=== PATIENT | female | born 1950 | race Caucasian/White ===

== ENCOUNTER 2016-04-19 13:24 | Day surgery (SDC) | payer SELFPAY ==
--- NOTE | ~2016-04-19 | EGD ---
EGD REPORT [facility] [address] [place]. [id number] NAME: HARLAN HERNANDEZ : [birth year] STATUS : REG [facility]#: [id number] AGE: 66 ADM/REG DATE : 04/19/16 MR#: [id number] REPORT SERV DATE: 04/19/16 DICTATED BY: PREMA SALOMON DATE: 04/19/16 REPORT STATUS : Draft [facility] DATE: 04/19/16 Endoscopy Center Patient Name: Harlan Hernandez Date of : 1950 Attending MD: PREMA SALOMON MD Procedure Date No Time: 04/19/2016 Procedure: Upper GI endoscopy Indications: Iron deficiency anemia, Gastro-esophageal reflux disease, Heme positive stool, Weight loss Medicines: See the Anesthesia note for documentation of the administered medications, Refused Diprivan. AA gave Versed 5mg and Fentanyl 2 cc Complications: No immediate complications. Procedure: Pre-Anesthesia Assessment: - ASA Grade Assessment: II - A patient with mild systemic disease. After obtaining informed consent, the endoscope was passed under direct vision. Throughout the procedure, the patient's blood pressure, pulse, and oxygen saturations were monitored continuously. The GIF [id number] was introduced through the mouth, and advanced to the second part of duodenum. The upper GI endoscopy was accomplished without difficulty. The patient tolerated the procedure well. Findings: The examined duodenum was normal. A small hiatus hernia was present. Whitish plaques throughout esophagus suggestive of thierno, Biopsies were taken with a cold forceps for histology. 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 Partially digested food in stomach Impression: - Normal examined duodenum. - Hiatus hernia. 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 [address] NAME: HARLAN HERNANDEZ : [birth year] STATUS : REG [facility] PAT#: [id number] AGE: 66 ADM/REG DATE : 04/19/16 MR#: [id number] REPORT SERV DATE: 04/19/16 DICTATED BY: PREMA SALOMON DATE: 04/19/16 REPORT STATUS : Draft TRANSCRIBED BY: [employer] DATE: 04/19/16 emergencies. The signs and symptoms of potential delayed complications were discussed with the patient. Return to normal activities tomorrow. Written discharge instructions were provided to the patient. - Full liquid diet. - No solid food Suggest Ensure plus 4-5 cans per day - Await pathology results. - If you do not hear about biopsy by Saturday, call Dr Salomon's RN Go to ER for any severe abdominal pain or fever as this could indicate a perforation of stomach. Procedure Code(s): --- Professional --- 91752, Esophagogastroduodenoscopy, flexible, transoral; with biopsy, single or multiple Diagnosis Code(s): --- Professional --- K44.9, Diaphragmatic hernia without obstruction or gangrene D50.9, Iron deficiency anemia, unspecified K21.9, Gastro-esophageal reflux disease without esophagitis R19.5, Other fecal abnormalities R63.4, Abnormal weight loss CPT copyright 2013 [employer]. All rights reserved. The codes documented in this report are preliminary and upon residential program worker review may be revised to meet current compliance requirements. Prema Salomon MD PREMA SALOMON MD 04/19/2016 3:10 PM This report has been signed electronically. Number of Addenda: 0 Note Initiated On: 04/19/2016 2:41 PM Scope Withdrawal Time 0 hours 0 minutes 0 seconds [address] [place] [address]
--- NOTE | ~2016-04-19 | CN ---
Consultation Report [facility] [address] [place]. [address] NAME: HARLAN HERNANDEZ : [birth year] [place]US [place] [facility] [place]#: [id number] AGE: 66 ADM/REG DATE : 04/19/16 MR#: [id number] REPORT SERV DATE: 04/19/16 DICTATED BY: PREMA SALOMON DATE: 04/19/16 REPORT STATUS : Draft TRANSCRIBED BY: MODL DATE: 04/19/16 DATE OF CONSULTATION: 04/19/2016 ADDENDUM: Harlan Hernandez was seen today for an EGD. She has been followed by my nurse practitioner since October with three separate office visits with anemia consistent with iron deficiency anemia, Hemoccult-positive stools, and weight loss. She also has had abdominal pain. She has been poorly compliant and refused the outset colonoscopy or EGD. The patient had a CT scan of the abdomen and pelvis done a couple of days ago which showed thickening of the stomach with free fluid with ascites. A barium swallow last October showed some plaque- like lesions in the esophagus. Once again, yesterday, her son, Mark, tried to push off her procedure. There has been tragedy within the family including a suicide last summer of her and apparently a son just recently, it sounds like he had a brain injury and then was on Diprivan drip. They spoke to the anesthesiologist, Dr. Manan Miranda prior to the procedure and they refused to have Diprivan. I told them that I think that was a safer way to go. She was sedated because she refused Diprivan with Versed and fentanyl. I talked to the son before and after the procedure as well as the patient before the procedure. I explained the fact that I was concerned that she was not compliant with our recommendations and she had even been refusing a colonoscopy. 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 I have given the patient directions regarding diet and to call for biopsy results, if they do not hear by Saturday. ERICA/JAD Prema Salomon M.D. / [id number] CC: Prema Salomon M.D.
[~2016-04-19 13:24] MED LIST: ACET500CAP PO; CYANO1000T PO; FESO4 PO; FOLIC PO; MIRALAXPKT PO; PRILO PO; PROCTOFOAM15 GM TOP; SUCR PO
== END 2016-04-19 23:59 | disposition home or self-care (01) ==
LOC: DMU 13:24
PROVIDERS: Internal Medicine Gastroenterology
PROC: 0DB68ZX Excision of Stomach, Via Natural or Artificial Opening Endoscopic, Diagnostic (ICD-10-PCS; 2016-04-19)
PROC: 0DB58ZX Excision of Esophagus, Via Natural or Artificial Opening Endoscopic, Diagnostic (ICD-10-PCS; principal; 2016-04-19 15:00)
DX: C16.9 Malignant neoplasm of stomach, unspecified (principal); K44.9 Diaphragmatic hernia without obstruction or gangrene; K21.0 Gastro-esophageal reflux disease with esophagitis; D50.9 Iron deficiency anemia, unspecified; F41.9 Anxiety disorder, unspecified; D64.9 Anemia, unspecified; Z88.0 Allergy status to penicillin; Z88.8 Allergy status to other drugs, medicaments and biological substances; Z79.899 Other long term (current) drug therapy; Z98.890 Other specified postprocedural states
CPT/HCPCS: 88305; 88342; 88360; J2250; J3010